=== PATIENT | female | born 1965 | race American Indian/Alaskan Native ===

== ENCOUNTER 2021-04-10 10:31 | Emergency (ER) | payer MEDICAID, OTHER ==
[2021-04-10] MEDS ORDERED: SODIUM CHLORIDE 0.9% 1000 ML 1,000 ML IV ONE ×2 (11:33→13:37)
[2021-04-10] MEDS ORDERED: ONDANSETRON 4 MG/2 ML INJ IV ONE (11:33)
--- NOTE | 2021-04-10 11:36 | Emergency Department Report ---
ED Dizziness HPI - General Chief Complaint: Dizziness Stated Complaint: DIZZINESS Time Seen by Provider: 04/10/21 11:28 Source: patient, EMS Mode of arrival: Stretcher Limitations: No Limitations - History of Present Illness Initial Comments: Patient is 55 years old female with history of hypertension and diabetes. Patient is presented to the ER complaining of generalized body ache, runny nose, cough and congestion associated with dizziness. Patient symptoms started yesterday. Patient denied any chest pain or shortness of breath. No abdominal pain. MD Complaint: dizziness, lightheadedness -: Sudden Timing: gradual onset Description: sense of movement, lightheadedness Improves With: remaining still Associated Symptoms: denies other symptoms - Related Data Previous Rx's Medication Instructions Recorded Last Taken Type Dicyclomine [Bentyl] 20 mg PO TID #20 capsule 08/21/14 Unknown Rx Ondansetron [Zofran] 4 mg PO Q8HR PRN #20 tablet 08/21/14 Unknown Rx Allergies Allergy/AdvReac Type Severity Reaction Status Date / Time No Known Allergies Allergy Verified 08/20/14 19:32 ED Review of Systems ROS: Stated complaint: DIZZINESS Other details as noted in HPI Comment: All other systems reviewed and negative Constitutional: denies: chills, fever Respiratory: denies: cough, shortness of breath, SOB with exertion, SOB at rest Cardiovascular: denies: chest pain, palpitations Gastrointestinal: nausea, vomiting. denies: abdominal pain, diarrhea, constipation, hematemesis, melena, hematochezia Musculoskeletal: denies: back pain Neurological: vertigo. denies: headache, weakness, numbness, paresthesias, confusion, abnormal gait ED Past Medical Hx - Past Medical History Previous Medical History?: Yes Hx Diabetes: Yes - Surgical History Additional Surgical History: CS - Social History Smoking Status: Never Smoker Substance Use Type: None - Medications Home Medications: Home Medications Medication Instructions Recorded Confirmed Last Taken Type Dicyclomine [Bentyl] 20 mg PO TID #20 capsule 08/21/14 Unknown Rx Ondansetron [Zofran] 4 mg PO Q8HR PRN #20 tablet 08/21/14 Unknown Rx ED Physical Exam - General Limitations: No Limitations General appearance: alert, in no apparent distress - Head Head exam: Present: atraumatic, normocephalic, normal inspection - Eye Eye exam: Present: normal appearance, PERRL - ENT ENT exam: Present: mucous membranes dry - Neck Neck exam: Present: normal inspection, full ROM. Absent: tenderness, meningismus - Respiratory Respiratory exam: Present: normal lung sounds bilaterally - Cardiovascular Cardiovascular Exam: Present: regular rate, normal rhythm, normal heart sounds - GI/Abdominal GI/Abdominal exam: Present: soft, normal bowel sounds. Absent: distended, tenderness, guarding, rebound, rigid, organomegaly, mass, bruit, pulsatile mass, hernia - Extremities Exam Extremities exam: Present: normal inspection, full ROM, normal capillary refill. Absent: tenderness, pedal edema, joint swelling, calf tenderness - Back Exam Back exam: Present: normal inspection, full ROM. Absent: CVA tenderness (R), CVA tenderness (L) - Neurological Exam Neurological exam: Present: alert, oriented X3, CN II-XII intact, normal gait, reflexes normal. Absent: motor sensory deficit - Psychiatric Psychiatric exam: Present: normal mood - Skin Skin exam: Present: warm, intact, normal color ED Course Vital Signs 04/10/21 10:32 Temperature 97.5 F L Pulse Rate 63 Respiratory 18 Rate Blood Pressure 159/81 [Left] O2 Sat by Pulse 100 Oximetry ED Medical Decision Making - Lab Data Result diagrams: 04/10/21 12:00 04/10/21 12:00 - EKG Data -: EKG Interpreted by Sc EKG shows normal: sinus rhythm Rate: normal - EKG Data Interpretation: no acute changes - Radiology Data Radiology results: report reviewed - Medical Decision Making Patient is 55 years old female with history of hypertension and diabetes. Patient is presented to the ER complaining of generalized body ache, runny nose, cough and congestion associated with dizziness. Patient symptoms started yesterday. Patient denied any chest pain or shortness of breath. No abdominal pain. Patient received 2 L of normal saline and Zofran with significant improvement in her symptoms. Labs reviewed and is unremarkable except for slight elevated lactic acid and glucose. Patient given prescription for Zofran and meclizine and advised to follow-up with her primary doctor in the next 2 to 3 days and to return to the ER she develop any new symptoms. Critical care attestation.: If time is entered above; I have spent that time in minutes in the direct care of this critically ill patient, excluding procedure time. ED Disposition Clinical Impression: Dizziness, Acute nausea with nonbilious vomiting Disposition: HOME / SELF CARE / HOMELESS Is pt being admited?: No Condition: Stable Instructions: Nausea and Vomiting, Adult, Dizziness, [id number] Referrals: PRIMARY CARE,MD [Primary Care Provider] - 3-5 Days
[2021-04-10 13:20] LABS: Basophils % (Auto) 0.2 % (0.0-1.8); Hemoglobin 13.6 gm/dl (10.1-14.3); Lymphocytes # (Auto) 2.4 K/mm3 (1.2-5.4); Lymphocytes % (Auto) 25.6 % (13.4-35.0); Mean Corpuscular HGB Conc 32 % (30-34); Mean Corpuscular Volume 89 fl (79-97); Monocytes # (Auto) 0.3 K/mm3 (0.0-0.8); Monocytes % (Auto) 3.3 % (0.0-7.3); Platelet Count 234 K/mm3 (140-440); Red Blood Count 4.82 M/mm3 (3.65-5.03); Red Cell Distribution Width 15.7 % (13.2-15.2)
[2021-04-10 13:34] LABS: Blood Urea Nitrogen 11 mg/dL (7-17); Calcium 9.6 mg/dL (8.4-10.2); Hemolysis Index 4
[2021-04-10 13:35] LABS: BUN/Creatinine Ratio 18
[2021-04-10] MEDS ORDERED: METOCLOPRAMIDE 10 MG/2 ML INJ ONE (14:28)
[2021-04-10 18:25] VITALS: BP 164/90
--- NOTE | 2021-04-11 09:38 | Electrocardiograph Report ---
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
== END 2021-04-10 18:25 | disposition home or self-care (01) ==
LOC: ED 10:31
DX: R42 Dizziness and giddiness (principal); R11.2 Nausea with vomiting, unspecified; I10 Essential (primary) hypertension; E11.9 Type 2 diabetes mellitus without complications; Z98.890 Other specified postprocedural states
CPT/HCPCS: 36415; 80048; 82140; 84484; 85025; 93005; 96361; 96374; 99284; J2405; J2765; J7030; Q0162